=== PATIENT | female | born 1980 | race Hispanic/Latino ===

== ENCOUNTER 2017-12-18 23:37 | Emergency (ER) | payer SELFPAY ==
[2017-12-19] MEDS ORDERED: ONDANSETRON HCL MDV 20ML 2 MG/ML VIAL ONE ×2 (01:09→01:20)
[2017-12-19] MEDS ORDERED: KETOROLAC TROMETHAMINE 30MG/ML ONE ×2 (01:09→01:19)
[2017-12-19] MEDS ORDERED: SODIUM CHLORIDE 0.9% 1000ML 1,000 ML IV ONE ×2 (01:09→01:20)
[2017-12-19] MEDS ORDERED: ONDANSETRON HCL 4 MG/2 ML VIAL ONE (01:20)
[2017-12-19 01:51] LABS: BASOPHILS % (AUTO) 1.7 % (0.0-5.0); EOSINOPHILS % (AUTO) 2.4 % (0.0-8.0); HEMATOCRIT 39.8 % (36-48); LYMPHOCYTES % (AUTO) 29.1 % (21.0-51.0); MEAN CORPUSCULAR HEMOGLOBIN 29.6 pg (27.0-33.0); MEAN CORPUSCULAR HGB CONC 33.8 g/dL (32.0-36.0); MEAN CORPUSCULAR VOLUME 87.7 fL (79-99); NEUTROPHILS % (AUTO) 55.8 % (40.0-77.0); PLATELET COUNT (AUTO) 231 K/uL (130-400); RED BLOOD CELL COUNT(AUTO) 4.54 MIL/uL (4.00-5.50); RED CELL DISTRIBUTION WIDTH 13.7 % (11.0-15.5); WHITE BLOOD COUNT (AUTO) 6.3 K/uL (4.8-10.8)
[2017-12-19 01:58] LABS: CREATININE 0.8 mg/dL (0.5-1.5); POTASSIUM 3.3 mmol/L (3.5-5.1)
[2017-12-19 02:04] LABS: ALBUMIN 3.5 g/dL (3.5-5.0); BILIRUBIN,TOTAL 0.2 mg/dL (0.2-1.0); TOTAL PROTEIN, SERUM 7.2 g/dL (6.0-8.3)
[2017-12-19 02:15] LABS: APPEARANCE,URINE Clear (CLEAR); BILIRUBIN,URINE Negative (NEGATIVE); COLOR,URINE Yellow (YELLOW); GLUCOSE, URINE (UA) Negative (NEGATIVE); KETONES,URINE Negative (NEGATIVE); LEUKOCYTE ESTERASE ,URINE Negative (NEGATIVE); NITRATE,URINE Negative (NEGATIVE); OCCULT BLOOD,URINE Negative (NEGATIVE); PROTEIN,URINE Negative (NEGATIVE)
[2017-12-19] MEDS ORDERED: DICYCLOMINE HCL 10 MG/ML 2ML AMP IM ONE (02:43)
[2017-12-19] MEDS ORDERED: IOPAMIDOL-370 100 ML VIAL IV ONE (03:16)
== END 2017-12-19 05:32 | disposition home or self-care (01) ==
LOC: EDH 23:37
DX: R10.13 Epigastric pain (principal); R11.2 Nausea with vomiting, unspecified; R19.7 Diarrhea, unspecified; Z90.710 Acquired absence of both cervix and uterus
CPT/HCPCS: 36415; 74177; 80053; 81003; 82150; 83690; 85025; 96361; 96372; 96374; 96375; 99285; J0500; J1885 ×2; J2405; J7030 ×2; Q9967

== ENCOUNTER 2019-10-05 17:46 | Emergency (ER) | payer OTHER | END 2019-10-05 19:29 | disposition home or self-care (01) | LOC: EDH 17:46 | DX: L03.031 Cellulitis of right toe (principal); Z90.710 Acquired absence of both cervix and uterus ==

== ENCOUNTER 2022-05-06 00:37 | Emergency (ER) | payer OTHER ==
[2022-05-06] MEDS ORDERED: LORAZEPAM 2 MG/ML 1 ML VIAL IVP ONE (01:00)
[2022-05-06 01:05] LABS: BASOPHILS % (AUTO) 0.4 % (0.0-5.0); EOSINOPHILS % (AUTO) 2.2 % (0.0-8.0); HEMATOCRIT 35.9 % (36-48); LYMPHOCYTES % (AUTO) 18.7 % (21.0-51.0); MEAN CORPUSCULAR HEMOGLOBIN 30.1 pg (27.0-33.0); MEAN CORPUSCULAR HGB CONC 33.7 g/dL (32.0-36.0); MEAN CORPUSCULAR VOLUME 89.3 fL (79-99); MONOCYTES % (AUTO) 7.3 % (3.0-13.0); NEUTROPHILS % (AUTO) 71.2 % (40.0-77.0); PLATELET COUNT (AUTO) 250 K/uL (130-400); RED BLOOD CELL COUNT(AUTO) 4.02 MIL/uL (4.00-5.50); RED CELL DISTRIBUTION WIDTH 12.6 % (11.0-15.5); WHITE BLOOD COUNT (AUTO) 9.1 K/uL (4.8-10.8)
[2022-05-06 01:13] LABS: CREATININE 0.8 mg/dL (0.5-1.5); POTASSIUM 3.7 mmol/L (3.5-5.1)
[2022-05-06 01:26] LABS: TOTAL PROTEIN, SERUM 6.2 g/dL (6.0-8.3)
[2022-05-06] MEDS ORDERED: LORAZEPAM 0.5 MG TABLET ONE (01:58)
[2022-05-06 02:07] VITALS: BP 128/72
== END 2022-05-06 02:10 | disposition home or self-care (01) ==
LOC: EDH 00:37
DX: F41.9 Anxiety disorder, unspecified (principal); F43.9 Reaction to severe stress, unspecified; Z98.890 Other specified postprocedural states
CPT/HCPCS: 36415; 80053; 84484; 85025; 93005; 96374